=== PATIENT | male | born 1960 | race Caucasian/White ===

== ENCOUNTER 2017-04-08 11:09 | Inpatient (IN) | payer BC ==
[~2017-04-08] VITALS: Ht 185.4 cm; Wt 88.7 kg
--- NOTE | ~2017-04-08 | HP ---
PATIENT'S NAME: NAYA RYAN [facility] AGE: 56 Y [address] ROOM: [id number] [place], [place] [id number] LOCATION: GICU ADMIT DATE: 04/08/2017 History & Physical DISCHARGE DATE: FAMILY PHYSICIAN: Rai Kline MD ATTENDING PHYSICIAN: ANN MARIE MOREAU DATE OF SERVICE: 04/08/2017 CHIEF COMPLAINT: Shortness of breath and fevers at home. HISTORY OF PRESENT ILLNESS: This is a very pleasant 56-year-old male with minimal past medical history aside from known chronic hepatitis C, who presented to [facility] today for an acute visit after noting two weeks of progressive cough and shortness of breath with generalized malaise. The patient notes that initially it was felt as a head cold; however, over the past couple of days and specifically last night, he worsened to developed fevers up to 102 at home and just felt generally ill, prompting his presentation to clinic this morning. I received a call earlier this morning from Dr. Zaragoza as the patient on arrival was febrile to 102.9 with pulse of 128, blood pressure 120s over 70s, respirations 22, saturating 93% on room air, and was found to have an elevated white blood cell count at 13.1, and a right upper lobe infiltrate per their verbal read in clinic on chest x-ray. The patient was thus deemed to be in sepsis secondary to a community-acquired pneumonia and requested for transfer to the hospital for inpatient admission, further evaluation and treatment. The patient denies other concerns currently, noting that he has been febrile for approximately last 24 hours and received ibuprofen just prior to transport here. He denies chest pain while he endorses a cough and mild shortness of breath. This is not significantly progressed over the past couple of hours. He denies abdominal pain, bowel or bladder dysfunction, no leg swelling. Aside from the hepatitis C, he endorses no other chronic medical problems and takes no medications. He is a former smoker with an extensive tobacco abuse history, but reports that he has quit four months ago. PAST MEDICAL HISTORY: 1. Chronic hepatitis C. 2. Thrombocytopenia. 3. Tobacco dependence in remission. 4. Alcohol dependence, drinking approximately 5-6 beers daily. SURGICAL HISTORY: Reports a prior knee surgery as well as a hernia repair as a child. FAMILY HISTORY: PATIENT'S NAME: NAYA RYAN [facility] AGE: 56 Y [address] ROOM: [id number] [place], [place] [address] LOCATION: [facility] ADMIT DATE: 04/08/2017 History & Physical DISCHARGE DATE: FAMILY PHYSICIAN: Rai Kline MD ATTENDING PHYSICIAN: ANN MARIE MOREAU Complete family obtained and noncontributory. SOCIAL HISTORY: Extensive tobacco dependence, recently quit smoking. Social alcohol use, which patient endorses to mean that he drinks 5-6 beers daily. ALLERGIES: NO KNOWN DRUG ALLERGIES. MEDICATIONS: None, did receive a dose of ibuprofen prior to transport. REVIEW OF SYSTEMS: Complete review of systems is performed and is negative except as noted above in HPI. PHYSICAL EXAMINATION: VITAL SIGNS: In clinic as noted above, temp 102.9, pulse 128, blood pressure 120s over 70s, respirations 22, saturating 93% on room air. New vital signs upon arrival, temp 98.2, pulse 99, blood pressure 125/69, respirations 20, saturating 93% on room air. GENERAL: The patient is in no apparent distress, resting comfortably in chair. HEENT: Head: Normocephalic and atraumatic. Eyes: Pupils equal, round, reactive to light. Extraocular muscles intact. Mild scleral icterus is appreciated. No conjunctival injection. ENT: Dry mucous membranes with no nasal discharge. NECK: Supple. No lymphadenopathy. No thyromegaly. No JVD. CARDIOVASCULAR: Tachycardic, but regular without murmur, rub, or gallop appreciated with 2+ pulses bilaterally in radial and dorsalis pedis. RESPIRATIONS: Diminished but clear bilaterally with normal respiratory effort, saturating well on room air. ABDOMEN: Soft, nontender, nondistended with normoactive bowel sounds. EXTREMITIES: Without appreciable edema. Extensive tattoos bilaterally on the upper extremities. NEUROLOGIC: The patient is alert and oriented x3 with a nonfocal neurologic exam to include 5/5 bilateral upper and lower extremity strength and no sensory deficits. PSYCHIATRIC: The patient is of normal mood and affect. LABS AND IMAGING: Currently pending here at [facility]. The review of outside labs earlier this morning show white blood cell count 13.1, platelets 77, potassium was 3.2, bicarb was 21, BUN was 10, creatinine 0.87, AST 129, ALT 135, total bilirubin 2.8. CRP 1.35. ESR was 15. Chest x-ray report shows a right upper PATIENT'S NAME: NAYA RYAN [facility] AGE: 56 Y [address] ROOM: [id number] [place], [place] [address] LOCATION: [facility] ADMIT DATE: 04/08/2017 History & Physical DISCHARGE DATE: FAMILY PHYSICIAN: Rai Kline MD ATTENDING PHYSICIAN: ANN MARIE MOREAU lobe infiltrate. ASSESSMENT: 1. Sepsis secondary to community-acquired pneumonia. 2. Thrombocytopenia, question chronicity. 3. Hepatitis C. 4. History of tobacco dependence without reported history of chronic obstructive pulmonary disease. 5. Chronic alcohol dependence. PLAN: Given significant tachycardia as well as fevers, leukocytosis and infiltrate identified on chest x-ray in clinic, the patient has been admitted with a diagnosis of sepsis secondary to pneumonia and has been placed on the sepsis pathway. Further evaluation has been ordered as stat to include lactic acid, blood cultures, CBC, CMS, procalcitonin, as well as 30 mL per kg of IV fluid bolus and potassium replacement for mild hypokalemia identified on outside labs. Tachycardia has improved already upon arrival and the patient looks well in person. In absence of risk factors for MDRO or recent hospitalization, we will plan to treat him as community-acquired pneumonia. We will start ceftriaxone and azithromycin in the absence of known drug allergies. We will follow up remainder of this workup. Time sepsis was determined was immediately upon arrival to the floor, which was at approximately 11:30 a.m. We will use Lovenox for DVT prophylaxis. The patient is a full code. Time spent on date of admission including review of outside records and face- to-face evaluation of the patient was 35 minutes. MD MARIMAR NG/sumi /[id number] D: [id number] T: 828 HISTORY & PHYSICAL
--- NOTE | ~2017-04-08 | DS ---
PATIENT'S NAME: NAYA RYAN [facility] AGE: 56 Y [address] ROOM: [id number] [place], [place] [address] LOCATION: GPCU ADMIT DATE: 04/08/2017 Discharge Summary DISCHARGE DATE: 04/10/2017 FAMILY PHYSICIAN: Rai Kline MD ATTENDING PHYSICIAN: Balwinder Posada FINAL DIAGNOSES: 1. Severe sepsis, secondary to pneumonia. 2. Right upper lobe pneumonia. 3. Chronic hepatitis C. 4. Thrombocytopenia. HISTORY OF PRESENT ILLNESS: Please see the history and physical dictated by Dr. Balwinder Posada for details of admission. In short, the patient was referred to the Hospitalist Service by Dr. Zaragoza. The patient had been seen in clinic earlier in the day and found to have progressive cough and shortness of breath. He had a fever and his heart rate was in the 120s and it was felt that he was septic. LABORATORY DATA: ABGs on admission pH 7.46, pCO2 31, and pO2 69. Sodium on admission 136, discharge 141, potassium on admission 3.4, discharge 3.7, chloride on admission 104, discharge 110, BUN on admission was 11, discharge 9, creatinine on admission was 1, at discharge 0.6. Liver enzymes on admission AST was 131, 118 at discharge, ALT on admission was 142, 135 at discharge. White blood cell count on admission was 17.5 with a left shift, hemoglobin was 14.5, hematocrit 41.4, and platelet count 78, hemoglobin most prior to discharge was 7.9, hemoglobin 13, and platelet count 70. MICROBIOLOGY DATA: Sputum culture did show moderate growth of possible Streptococcus pneumoniae. X-RAY DATA: Ultrasound of the abdomen done on admission because of the elevated liver enzymes showed changes consistent with cirrhosis. There was no cholelithiasis. No extra or intrahepatic biliary dilation. Chest x-ray on admission did show an infiltrate in the right midlung and repeat on the showed the right lung infiltrate. HOSPITAL COURSE: The patient was admitted to the Hospitalist Service at the request of Dr. Zaragoza. The patient was initiated on the sepsis protocol. The patient received IV ceftriaxone and azithromycin. He did receive the fluid bolus and was replaced with potassium. He felt markedly improved, the next day, the patient was able to be moved out of the Intensive Care Unit and moved up to the floor. His laboratory studies were stable. On the morning of the , the patient stated that he is feeling much better, he was afebrile, he was not requiring oxygen. It was felt that he would be stable for discharge. PATIENT'S NAME: NAYA RYAN [facility] AGE: 56 Y [address] ROOM: [place] [id number] LOCATION: GPCU ADMIT DATE: 04/08/2017 Discharge Summary DISCHARGE DATE: 04/10/2017 FAMILY PHYSICIAN: Rai Kline MD ATTENDING PHYSICIAN: Balwinder Posada Based upon the culture data result, the patient was initiated on Levaquin. DISCHARGE INSTRUCTIONS: The patient is discharged to home. He is to follow up with his primary care provider, Dr. Kline, in 3 to 5 days. DISCHARGE MEDICATIONS: 1. Levofloxacin 750 mg daily for 5 days. 2. Tylenol 325 mg 1 to 2 every 4 hours as needed. He was given a note to return to work on the . PROGNOSIS: Overall, prognosis at discharge was good. RAMYA SERRATO MD LAW/modl /[id number] d: 04/10/17 2354 t: 04/11/17 1428, DISCHARGE SUMMARY
[~2017-04-08 11:09] MED LIST: LEVAQUIN500 MG PO; PERCOCET 5-3251 EACH PO
[2017-04-08 12:16] LABS: BASOPHIL # 0.1 K/uL (0.0-0.2); BASOPHIL % 0.5 %; HEMATOCRIT 41.4 % (37.0-53.0); HEMOGLOBIN 14.5 g/dL (12.0-17.0); IMMATURE GRANULOCYTE # 0.1 K/uL (0.0-0.3); IMMATURE GRANULOCYTE % 0.6 %; LYMPHOCYTE # 0.8 K/uL (0.8-4.0); LYMPHOCYTE % 4.3 %; MCH 32.6 pg (27.0-34.0); MONOCYTE # 1.4 K/uL (0.0-1.0); MONOCYTE % 7.8 %; MPV 9.7 fl (9.4-12.4); NEUTROPHIL # (ANC) 15.2 K/uL (1.4-9.0); NEUTROPHIL % 86.8 %; NRBC % 0 /100WBC (0-0.00); PLATELET COUNT 78 K/uL (150-450); RBC 4.45 M/uL (4.00-6.00); RDW-CV 12.9 % (11.9-14.6)
[2017-04-08 12:24] LABS: WBC 17.5 K/uL (4.0-11.0)
[2017-04-08 12:32] LABS: ALBUMIN 3.4 gm/dL (3.5-5.0); ANION GAP 11.4 (10.0-19.0); CALCIUM 8.3 mg/dL (8.5-10.5); POTASSIUM 3.4 mMol/L (3.7-5.1); TOTAL BILIRUBIN 3.3 mg/dL (0.0-1.5); TOTAL PROTEIN 7.7 g/dL (6.0-8.4)
[2017-04-08 13:33] LABS: PCO2 31 mmHg (35-45); PO2 69 mmHg (80-90)
[2017-04-08 13:48] LABS: PCO2 31 mmHg (35-45)
[2017-04-08 13:50] LABS: PO2 122 mmHg (80-90)
[2017-04-08 14:00] LABS: INR - (THERAPEUTIC) 1.23 (0.92-1.07); PROTIME 12.9 SECONDS (9.8-11.4)
[2017-04-08 14:19] LABS: BILIRUBIN URINE NEGATIVE (NEGATIVE); BLOOD URINE NEGATIVE /UL (NEGATIVE); COLOR URINE YELLOW (YELLOW); GLUCOSE URINE NEGATIVE (NEGATIVE); KETONE URINE 5 mg/dL (NEGATIVE); LEUKOCYTES URINE NEGATIVE /UL (NEGATIVE); NITRITE URINE NEGATIVE (NEGATIVE); PROTEIN URINE NEGATIVE (NEGATIVE); SPEC GRAVITY URINE 1.005 (1.003-1.035); TURBIDITY URINE CLEAR (CLEAR); UROBILINOGEN URINE 8 mg/dL (NORMAL)
--- NOTE | 2017-04-08 15:44 | NUR ---
Significant Event: Patient alert and oriented x3. No neuro deficits. VSS, on room air. Lung sounds clear and diminished. Cough noted, coughs up yellow sputum at times. Sputum culture needed, container at bedside. Voids per bathroom. Last BM 04/07. No skin issues. IV to R) wrist infusing NS with KCl at 500 mL/hr currently, then NS at 500 mL/hr for 650 mL per sepsis orders. Need stool sample if has loose stools. Follow up: SBA. Regular diet.
--- NOTE | 2017-04-08 16:28 | NUR ---
Patient direct admit from [facility]. Went into clinic due to fever and "not feeling well". Found to have pneumonia/sepsis. Has had an upper respiratory infection for the past few weeks and has gradually gotten worse. Patient states he has had a cough, coughs up yellow sputum from time to time. History of hepatitis C. No other major health history. Drink 6 pack of bud light a day. Stopped smoking 4 months ago.
--- NOTE | 2017-04-09 04:48 | NUR ---
Significant Event: Patient is alert and oriented x 3. C/O mild headache. Has PRN Tylenol and received x 1 order for Ibuprofen with relief noted. Moves spontaneously and follows commands. PERRLA. Strong and equal stength. 2+ pulses. Mildly HTN. VSS. Afebrile. On room air. Lungs clear and diminished in the RLL. Voids per restroom. SBA. Bowel sounds active. No BM this shift. Regular diet with good appetite. PIV to bilateral wrists SL with no complications. Pleasant and cooperative with cares. Follow up: monitor CIWA and pain
[2017-04-09 10:04] LABS: BASOPHIL % 0.3 %; HEMATOCRIT 38.4 % (37.0-53.0); HEMOGLOBIN 13.2 g/dL (12.0-17.0); IMMATURE GRANULOCYTE # 0.1 K/uL (0.0-0.3); LYMPHOCYTE # 1.1 K/uL (0.8-4.0); MCH 32.8 pg (27.0-34.0); MCHC 34.4 gm/dL (32.0-36.5); MCV 95.3 fl (83.0-98.0); MONOCYTE # 0.6 K/uL (0.0-1.0); MPV 10.9 fl (9.4-12.4); NEUTROPHIL # (ANC) 9.9 K/uL (1.4-9.0); NEUTROPHIL % 84.7 %; NRBC % 0 /100WBC (0-0.00); PLATELET COUNT 68 K/uL (150-450); RBC 4.03 M/uL (4.00-6.00); RDW-CV 13.2 % (11.9-14.6); WBC 11.7 K/uL (4.0-11.0)
[2017-04-09 10:13] LABS: ALBUMIN 2.6 gm/dL (3.5-5.0); ALK PHOS 88 IU/L (33-138); ALT 130 IU/L (12-78); ANION GAP 10.8 (10.0-19.0); AST 118 IU/L (10-40); BLOOD UREA NITROGEN 15 mg/dL (6-24); CHLORIDE 110 mMol/L (96-110); CO2 24 mMol/L (22-32); CREATININE 0.7 mg/dL (0.6-1.3); POTASSIUM 3.8 mMol/L (3.7-5.1); SODIUM 141 mMol/L (135-145); TOTAL PROTEIN 6.6 g/dL (6.0-8.4)
[2017-04-09 10:16] LABS: TOTAL BILIRUBIN 1.8 mg/dL (0.0-1.5)
--- NOTE | 2017-04-09 11:39 | NUR ---
Significant Event:Patient is alert and oriented times three. PERRLA. CSM intact. Moves extremities spontaneously and on command. Equal strength noted throughout. VSS on room air. Lungs clear throughout. SR on telemetry. Bowel sounds active, patient reports bm this shift. Patient voids per the bathroom without difficulty. Standby assist. Lovenox for VTE prophylaxis. Tylenol given for pain at 0954. Attempted a heating pad to help with his back pain. Peripheral IV to bilateral wrists are saline locked, flush well without difficulty. Intermittent IV antibiotics. Regular diet, tolerates well. Follow up:Transferred to PCU
--- NOTE | 2017-04-09 16:12 | NUR ---
Significant Event: A/O X3. UP AD MARIELA IN ROOM. VSS. ROOM AIR. BILATERAL PIV'S SL'D. C/O BACK PAIN AND THEN HEADACHE THIS AFTERNOON, REFUSED TYLENOL, ICE PACK APPLIED TO POSTERIOR NECK. SEEMED BE ANXIOUS AT TIMES. PRN ATIVAN GIVEN X1, IS RESTING NOW. Follow up: POSSIBLE DISCHARGE TOMORROW.
[2017-04-10 04:11] LABS: BASOPHIL % 0.1 %; HEMATOCRIT 34.8 % (37.0-53.0); HEMOGLOBIN 12.4 g/dL (12.0-17.0); IMMATURE GRANULOCYTE # 0.1 K/uL (0.0-0.3); IMMATURE GRANULOCYTE % 0.7 %; LYMPHOCYTE # 1.3 K/uL (0.8-4.0); LYMPHOCYTE % 15.6 %; MCH 33.7 pg (27.0-34.0); MCHC 35.6 gm/dL (32.0-36.5); MCV 94.6 fl (83.0-98.0); MONOCYTE # 0.5 K/uL (0.0-1.0); MONOCYTE % 5.9 %; MPV 10.4 fl (9.4-12.4); NEUTROPHIL # (ANC) 6.6 K/uL (1.4-9.0); NEUTROPHIL % 77.7 %; NRBC % 0 /100WBC (0-0.00); PLATELET COUNT 64 K/uL (150-450); RBC 3.68 M/uL (4.00-6.00); RDW-CV 13.2 % (11.9-14.6); WBC 8.5 K/uL (4.0-11.0)
--- NOTE | 2017-04-10 05:18 | NUR ---
Significant Event: A&Ox3, FAC, ROSSI. Up ad ernesto in room. VSS on RA; SBP 120-130, HR 70-90. Bilateral PIV SL. C/O back pain and restlessness, PRN ativan given with results. Follow up: Possible discharge today.
[2017-04-10 09:12] LABS: BASOPHIL % 0.1 %; HEMATOCRIT 36.7 % (37.0-53.0); IMMATURE GRANULOCYTE # 0.1 K/uL (0.0-0.3); IMMATURE GRANULOCYTE % 0.8 %; LYMPHOCYTE # 1.3 K/uL (0.8-4.0); LYMPHOCYTE % 16.9 %; MCH 33.5 pg (27.0-34.0); MCHC 35.4 gm/dL (32.0-36.5); MCV 94.6 fl (83.0-98.0); MONOCYTE # 0.5 K/uL (0.0-1.0); MONOCYTE % 6.8 %; MPV 10.4 fl (9.4-12.4); NEUTROPHIL % 75.4 %; NRBC % 0 /100WBC (0-0.00); PLATELET COUNT 70 K/uL (150-450); RBC 3.88 M/uL (4.00-6.00); RDW-CV 13.2 % (11.9-14.6); WBC 7.9 K/uL (4.0-11.0)
[2017-04-10 09:31] LABS: ALBUMIN 2.7 gm/dL (3.5-5.0); ALK PHOS 90 IU/L (33-138); ALT 135 IU/L (12-78); ANION GAP 11.7 (10.0-19.0); AST 118 IU/L (10-40); BLOOD UREA NITROGEN 9 mg/dL (6-24); CALCIUM 7.8 mg/dL (8.5-10.5); CHLORIDE 110 mMol/L (96-110); CO2 23 mMol/L (22-32); CREATININE 0.6 mg/dL (0.6-1.3); POTASSIUM 3.7 mMol/L (3.7-5.1); SODIUM 141 mMol/L (135-145); TOTAL PROTEIN 6.5 g/dL (6.0-8.4)
[2017-04-10 09:35] LABS: TOTAL BILIRUBIN 1.2 mg/dL (0.0-1.5)
[2017-04-10] MEDS ORDERED: LEVAQUIN750 MG PO (13:49)
[2017-04-10] MEDS ORDERED: TYLENOL325 MG PO (13:50)
--- NOTE | 2017-04-10 15:56 | NUR ---
DISCHARGE: A/O X3. UP AD MARIELA. VSS. BILATERAL WRIST PIV'S DC'D WITHOUT COMPLICATIONS. DENIES PAIN. DISCHARGE INSTRUCTIONS REVIEWED. NEED TO MAKE F/U APPOINTMENT DISCUSSED. EDUCATION ABOUT NEW MEDS, SEPSIS AND PNEUMONIA REVIEWED AND SENT WITH PATIENT. NOTES FOR WORK SENT. NO FURTHER QUESTIONS. AMBULATED TO [facility] BY RN @ [id number]. SIGNIFICANT OTHER DRIVE PATIENT HOME.
== END 2017-04-10 14:15 | disposition disaster alternative care site (69) | DRG 871 ==
LOC: GICU 11:09 → GPCU 04-09 11:33
PROVIDERS: Internal Medicine; ADMIT Internal Medicine
DX: A41.9 Sepsis, unspecified organism (principal); J18.9 Pneumonia, unspecified organism; D69.6 Thrombocytopenia, unspecified; F10.20 Alcohol dependence, uncomplicated; J44.9 Chronic obstructive pulmonary disease, unspecified; Z87.891 Personal history of nicotine dependence; R65.20 Severe sepsis without septic shock; B18.2 Chronic viral hepatitis C
CPT/HCPCS: J0456; J0696; J1650; J2060; J3480; J7030; J7040; J7050